=== PATIENT | male | born 1945 | race African-American/Black ===

== ENCOUNTER → 2016-10-30 | Outpatient (CLI) | payer OTHER ==
[~2016-10-30] VITALS: Ht 172.7 cm; Wt 93.4 kg
[~2016-10-30] MED LIST: ALLOPURINOL 30300 M2 PO; ASPIR 8181 MG PO; CARDURA4 MG PO; FENOFIBRATE160 MG PO; FIBER0.52 GM PO; FLAGYL500 MG PO; K-DUR 20 MEQ T20 MEQ PO; LIPITOR 20 MG T20 M1 PO; LISINOPRIL10 MG PO; LISINOPRIL20 MG PO; NEURONTIN600 MG PO; NIFEDIPINE ER90 M1 PO; OXYCODONE-ACET1 EACH PO; PANTOPRAZOLE SO40 M1 PO; PRAVACHOL40 MG PO; VITAMIN B-12500 MCG PO
--- NOTE | ~2016-10-30 | P ---
[facility] [place] [address] PROCEDURE REPORT Name: RITA VENCES Room #: REG [facility].#: [id number] Admission: 10/30/16 Attend Phys: Heron Michel MD Discharge: Date of : 47 Report #: [id number] THIS REPORT FOR: //name// CC: Heron Michel BRIEF HISTORY: The patient is a 71-year-old male who was admitted recently to [facility] and had an upper endoscopy which revealed esophageal ulcers and a shelf-like abnormality in the distal esophagus with several small nodules. Biopsies revealed ulceration and were all benign, without evidence of Mackenzie's esophagus. He has been treated with a proton pump inhibitor and presents today for repeat evaluation of the esophagus, in particular to rule out malignancy and Mackenzie's esophagus due to the above-mentioned abnormalities. PREOPERATIVE DIAGNOSIS: Previous severe esophagitis. POSTOPERATIVE DIAGNOSES: 1. Small, moderate hiatus hernia. 2. Mild diffuse erythematous gastritis. 3. Questionable short segment Mackenzie's esophagus. 4. Healed esophagitis. MEDICATIONS: Deep sedation with propofol per anesthesia. SPECIMENS: 1. Biopsies of esophagus at 41 cm along the squamocolumnar junction to rule out Mackenzie. 2. Random biopsies of distal esophagus to rule out Mackenzie. ESTIMATED BLOOD LOSS: 3 mL. PROCEDURE: EGD with biopsy. FINDINGS: Prior to propofol sedation, procedure of upper endoscopy discussed with the patient as well as potential risks and its complications. He indicates he understands and desires to proceed. DESCRIPTION OF PROCEDURE: With the patient in the left lateral decubitus position, the [employer] video endoscope was inserted in the cervical esophagus under direct vision without difficulty. Examination of this organ through its entire length revealed normal esophageal mucosa down to the squamocolumnar junction. The squamocolumnar junction was intact. There were no ulcers or erosions. There was also a wffto-zp-lnfrgutj-sized sliding-type hiatus hernia and there was a question of a possibly short segment Mackenzie mucosa which was difficult to determine with the hiatus hernia. Multiple biopsies were obtained along the squamocolumnar junction. In addition, about 41 cm, the esophageal mucosa was [facility] [address] [place] [address] PROCEDURE REPORT Name: RITA VENCES [facility].#: [id number] Admission: 10/30/16 Attend Phys: Heron Michel MD Discharge: Date of : 47 Report #: [id number] completely normal. There were no shelf-like lesions. There were no ulcers. Dr. Chirinos described several nodules and no nodules were seen. The mucosa was completely flat. However, multiple random biopsies were obtained. The scope was advanced through the hernia into the stomach, which was examined on end views as well as retroflexed views. There was a pattern of gastritis which improves. She noted previous biopsies for H. pylori were negative. Upon retroflexion, the hernia was noted. No mass lesions were seen. The pylorus, duodenal bulb and postbulbar sweep were all inspected and noted to be within normal limits. At that point, the scope was slowly withdrawn and careful circumferential views confirmed the above findings. The patient tolerated the procedure well. CONDITION OF THE PATIENT UPON DISCHARGE: Following the procedure, the patient drowsy and arousable and he will be discharged to home when fully ambulatory. INSTRUCTIONS TO THE PATIENT AND FAMILY AT THE TIME OF DISCHARGE: Findings as noted above. At this point, more than likely, previously, he had just severe esophagitis which is now healed with a proton pump inhibitor. I do not see any abnormalities to suggest malignancy. He may have a short segment of Mackenzie, which is difficult to determine due to his hiatus hernia. We will follow up on biopsies and make further recommendations. However, at this point in time, he should continue his proton pump inhibitor. If he does well over the next 3 months, he may attempt to reduce to less than daily. <ELECTRONICALLY SIGNED> By: Heron Michel MD 10/31/16 0820 0943 1228 Heron Michel MD /nt
--- NOTE | ~2016-10-30 | EKG ---
[place] [address] [facility] [place] [address] ELECTROCARDIOGRAM REPORT Name: RITA VENCES [facility] [id number] Admission: 10/30/16 Attend Phys: Heron Michel MD Discharge: Date of : 47 Report #: [id number] THIS REPORT FOR: //name// [facility] Test Date: 2016-10-30 Test Time: 07:49:04 Pat Name: RITA EVNCES Department: Room: Gender: M Daub Color Mixer: MATHEW : 1945 Requested By: Gian Lockhart Order Number: [id number] MD: Aubrey Barroso Measurements Intervals [place] Rate: 61 P: 54 UT: 164 QRS: 71 QRSD: 98 T: 37 QT: 424 QTc: 427 Interpretive Statements Sinus rhythm Poor R wave progression Small inferior Q waves Compared to ECG 07/14/2016 09:51:47 inferior Q waves are less prominent Electronically Signed On 10-31-2016 8:06:33 CDT by Aubrey Barroso [email or web address] <ELECTRONICALLY SIGNED> By: Aubrey Barroso MD, [facility] 10/31/16 0806 0749 0749 Aubrey Barroso MD, FACC /EPI
--- NOTE | ~2016-10-30 | S ---
[facility] [place] [address] SURGICAL PATH RPT PROCEDURE Name: RITA VENCES Room #: REG [facility]..#: [id number] Admission: 10/30/16 Date of : 47 Discharge: Report #: [id number] Path Case #: [id number] PATHOLOGY REPORT COLLECTION DATE: 10/30/2016 RECEIVED DATE: 10/31/2016 SUBMITTING PHYS: Dr. Heron Michel OTHER PHYS: Dr. Heron Hi SPECIMEN(S) RECEIVED: A.Bx of GEJ at 41 cm B.Random bx of distal esophagus * * * * * * * * * * * * FINAL DIAGNOSIS: A. "Bx of GEJ at 41 cm," biopsy: - Esophageal squamous mucosa and gastric cardiac type mucosa with reactive changes and acute and chronic inflammation; no intestinal metaplasia or dysplasia seen. B. "Random bx of distal esophagus," biopsy: - Esophageal squamous mucosa with mild reactive changes, submucosal edema, and mild acute and chronic inflammation; no glandular epithelium or dysplasia seen. COMMENT: Clinical and endoscopic correlation is recommended. (CLW:; d/t: 11/03/16) PATHOLOGIST: Brittney Carrizales M.D. REPORT ELECTRONICALLY SIGNED BY: Brittney Carrizales M.D. DATE/TIME: 11/03/2016 20:42 * * * * * * * * * * * * GROSS PATHOLOGY: A. Received in formalin labeled "Rita Vences, BX of GEJ at 41 cm," are 5 segments of christie soft tissue measuring 2.3 x 0.2 x 0.2 cm in aggregate dimensions and ranging from 0.2 to 0.7 cm in maximum dimension. The specimen is submitted entirely in cassette A1. B. Received in formalin labeled "Rita Vences, random BX of distal esophagus," are 6 segments of white soft tissue measuring 1.9 x 0.2 x 0.1 cm in aggregate dimensions and ranging from 0.1 to 0.6 cm in maximum dimension. The specimen is submitted entirely in cassette B1. (SHAHANA; 10/31/2016) [address] [address] SURGICAL PATH RPT PROCEDURE Name: RITA VENCES Room #: REG [facility] M.R.#: [id number] Admission: 10/30/16 Date of : 47 Discharge: Report #: [id number] Path Case #: [id number] CLINICAL HISTORY: Esophagitis INITIAL CPT CODE(S): A; 85503 B; 75357 Professional services performed by [facility] [address], [place] [address] Technical services performed by [facility] at [address] [place] [address], [facility] [address], [place] [address]. [facility] [address] [place] [address] PHONE: [phone] DIRECTOR: Feroz Johnson M.D. * * * END OF REPORT * * *
== END | disposition home or self-care (01) ==
LOC: GI 10-10 13:35
DX: K29.70 Gastritis, unspecified, without bleeding (principal); K44.9 Diaphragmatic hernia without obstruction or gangrene; I10 Essential (primary) hypertension; E78.00 Pure hypercholesterolemia, unspecified; Z87.442 Personal history of urinary calculi; K21.9 Gastro-esophageal reflux disease without esophagitis; Z96.653 Presence of artificial knee joint, bilateral; M19.90 Unspecified osteoarthritis, unspecified site; M10.9 Gout, unspecified; Z98.890 Other specified postprocedural states; Z88.0 Allergy status to penicillin; Z79.899 Other long term (current) drug therapy

== ENCOUNTER → 2018-07-01 | Outpatient (CLI) | payer OTHER ==
[~2018-07-01] VITALS: Ht 172.7 cm; Wt 86.2 kg
[~2018-07-01] MED LIST changes: +COREG25 MG PO
--- NOTE | ~2018-07-01 | P ---
[facility] [place] [address] PROCEDURE REPORT Name: RITA VENCES Room #: REG [facility].#: [id number] Admission: 07/01/18 Attend Phys: Heron Michel MD Discharge: Date of : 47 Report #: [id number] THIS REPORT FOR: //name// CC: Heron Michel DATE OF SERVICE: 07/01/2018 BRIEF HISTORY: The patient is a 72-year-old male with a history of colon polyps, for high risk screening colonoscopy. PREOPERATIVE DIAGNOSIS: High risk screening colonoscopy. POSTOPERATIVE DIAGNOSES: 1. Multiple colonic polyps. 2. Moderate diverticulosis coli. 3. Internal hemorrhoids. MEDICATIONS: Deep sedation with propofol per Anesthesia. SPECIMENS: 1. Diminutive polyp, proximal transverse colon. 2. Diminutive polyp, hepatic flexure. 3. Sessile polyp at 70 cm. 4. Diminutive polyps x 2 at 55 cm. ESTIMATED BLOOD LOSS: 3 mL. PROCEDURE: Colonoscopy to cecum and terminal ileum with snare polypectomy and biopsy. FINDINGS: Prior to propofol sedation, procedure of colonoscopy was discussed with the patient as well as potential risks and its complications. He indicates he understands and desires to proceed. DESCRIPTION OF PROCEDURE: With the patient in left lateral decubitus position, digital examination was completed, which revealed no abnormalities. Subsequently, the Olympus video colonoscope was introduced in the rectum, advanced under direct vision to the cecum. Done with minimal difficulty. The cecum was identified by the ileocecal valve and the appendiceal orifice. I was able to visualize the distal segment of the terminal ileum, which was inspected and noted to be unremarkable. At that point, the scope was slowly withdrawn and careful circumferential views were obtained. As we withdrew the scope, a diminutive polyp was seen at the hepatic flexure, removed with cold biopsy forceps. Another one was seen in the proximal transverse colon, also removed [facility] [address] [place] [address] PROCEDURE REPORT Name: RITA VENCES Room #: REG [facility].#: [id number] Admission: 07/01/18 Attend Phys: Heron Michel MD Discharge: Date of : 46 Report #: [id number] with cold biopsy forceps. At 70 cm, a 4-5 mm sessile polyp was seen and removed by cold snare polypectomy. At 55 cm, 2 diminutive polyps were seen and removed with biopsy forceps. In addition, he was noted to have diverticular disease throughout the colon. He had moderate sized diverticulum starting about the hepatic flexure and all the way into the distal sigmoid colon. There was moderate diverticulosis coli, but there was no endoscopic evidence of diverticulitis. The scope was withdrawn in the rectum. No abnormalities were seen. Upon retroflexion, internal hemorrhoids were seen. Scope was withdrawn. The patient tolerated the procedure well. CONDITION OF THE PATIENT UPON DISCHARGE: Following the procedure, the patient drowsy, aroused, conversant and will be discharged home when fully ambulatory. INSTRUCTIONS TO THE PATIENT AND FAMILY AT THE TIME OF DISCHARGE: A total of 5 polyps were identified and removed today. We will follow up on the pathology and make further recommendations. If 3 or more polyps are adenomas, he is to return in 3 years; if only 1-2 adenomas, then 5 years; if none are adenomas, then 10 years would be indicated. Suggest high fiber diet for his diverticular disease. Last colonoscopy was probably more than 10 years ago, the patient does not recall. Withdrawal time from the cecum was 16 minutes and 12 seconds. By: 1040 1453 Heron Michel MD /nt
--- NOTE | 2018-07-05 08:08 | PATH ---
[facility] [place] [address] [place] [address] PATHOLOGY RPT PROCEDURE Name: RITA VENCES Room #: REG [facility] M.R.#: [id number] Admission: 07/01/18 Date of : 47 Discharge: Report #: [id number] Path Case #: [id number] [facility] Accession Number: [id number] . 01 Material submitted: . PART A: BX OF POLYP AT PROX TRANSVERSE COLON PART B: BX OF POLYP AT HEPATIC FLEXURE PART C: POLYP AT 70 CM PART D: BX OF POLYP AT 55 CM X2 . 01 Clinical history: . Pre-OP DX: Hx colon polyps Post-OP DX: Colon polyps, diverticulosis, hemorrhoids . 02 Diagnosis: A. Polyp, proximal transverse colon, endoscopic biopsy: - Minute tubular adenoma arising in a background of inflamed hyperplastic polyp. - Negative for high grade dysplasia. . B. Polyp, at hepatic flexure, endoscopic biopsy: - Minute tubular adenoma. - Negative for high grade dysplasia. . C. Polyp, at 70 cm, endoscopic biopsy: - Tubular adenoma. - Negative for high grade dysplasia. . D. Polyp x 2, at 55 cm, endoscopic biopsy: - Two fragments (of multiple sampled) showing tubular adenoma. - Negative for high grade dysplasia. (IUV/db; 07/02/2018) LBQ/07/02/2018 . 02 Electronically signed: . Nasreen Haro MD, Pathologist NPI- [id number] . 01 Gross description: . A. Received in formalin labeled "Rita Vences, BX of polyp proximal transverse colon," is a single segment of christie soft tissue measuring 0.7 cm in maximum dimension. The specimen is entirely submitted in cassette A1. . B. Received in formalin labeled "Rita Vences, BX polyp at hepatic flexure," are 2 segments of christie soft tissue measuring 0.7 x 0.2 x 0.2 cm in aggregate dimensions and ranging from 0.3 to 0.4 cm in maximum dimension. The specimen is submitted entirely in cassette B1. [address] [address] PATHOLOGY RPT PROCEDURE Name: RITA VENCES ELVIA [facility] [id number] Admission: 07/01/18 Date of : 47 Discharge: Report #: [id number] Path Case #: [id number] . C. Received in formalin labeled "Rita Vences, polyp at 70 cm," are 4 segments of christie soft tissue measuring 1.9 x 1.3 x 0.3 cm in aggregate dimensions and ranging from 0.3 to 0.9 cm in maximum dimension. The specimen is submitted entirely in cassette C1. . D. Received in formalin labeled "Rita Vences, BX polyp at 55 cm," are 5 segments of christie soft tissue measuring 1.2 x 0.9 x 0.4 cm in aggregate dimensions and ranging from 0.1 to 0.5 cm in maximum dimension. The specimen is submitted entirely in cassette D1. (TSD; 07/01/2018) TOB/TOB . 02 Pathologist provided ICD-10: D12.3, D12.6, K63.5 . 02 CPT . 789994, 631943, 864896, 089851 Specimen Comment: A courtesy copy of this report has been sent to Specimen Comment: [phone], . Specimen Comment: Report sent to / DR DC Performed at: [address], [place] [id number] MD Terry Dias MD Phone: [phone] Performed at: [address] [id number] MD Nasreen Haro MD Phone: [phone]
== END | disposition home or self-care (01) ==
LOC: GI 08:03
DX: Z12.11 Encounter for screening for malignant neoplasm of colon (principal); Z86.010 Personal history of colon polyps; D12.3 Benign neoplasm of transverse colon; D12.4 Benign neoplasm of descending colon; D12.5 Benign neoplasm of sigmoid colon; K57.30 Diverticulosis of large intestine without perforation or abscess without bleeding; K64.8 Other hemorrhoids; I10 Essential (primary) hypertension; E78.5 Hyperlipidemia, unspecified; K21.9 Gastro-esophageal reflux disease without esophagitis; M10.9 Gout, unspecified; M19.90 Unspecified osteoarthritis, unspecified site; Z91.041 Radiographic dye allergy status; Z88.0 Allergy status to penicillin; Z79.899 Other long term (current) drug therapy; Z87.19 Personal history of other diseases of the digestive system; Z98.890 Other specified postprocedural states; Z87.442 Personal history of urinary calculi; Z96.653 Presence of artificial knee joint, bilateral
CPT/HCPCS: 62110; 62900

== ENCOUNTER → 2018-12-16 | Outpatient (CLI) | payer OTHER ==
[2018-12-16 08:49] LABS: CREATININE 1.8 mg/dL (0.7-1.3)
== END ==
LOC: NUC 08:02
PROVIDERS: Specialist
DX: C61 Malignant neoplasm of prostate (principal); M17.0 Bilateral primary osteoarthritis of knee; Z96.653 Presence of artificial knee joint, bilateral

== ENCOUNTER → 2018-12-20 | Outpatient (CLI) | payer OTHER | LOC: CAT 07:44 | DX: C61 Malignant neoplasm of prostate (principal); N28.89 Other specified disorders of kidney and ureter; I70.0 Atherosclerosis of aorta; N40.0 Benign prostatic hyperplasia without lower urinary tract symptoms; M16.0 Bilateral primary osteoarthritis of hip; M47.816 Spondylosis without myelopathy or radiculopathy, lumbar region; M12.88 Other specific arthropathies, not elsewhere classified, other specified site ==

== ENCOUNTER → 2019-02-18 | Outpatient (CLI) | payer OTHER | LOC: NUC 08:31 | DX: Z08 Encounter for follow-up examination after completed treatment for malignant neoplasm (principal); Z85.46 Personal history of malignant neoplasm of prostate ==

== ENCOUNTER → 2019-02-22 | Outpatient (CLI) | payer OTHER | LOC: CAT | DX: N28.1 Cyst of kidney, acquired (principal); N28.9 Disorder of kidney and ureter, unspecified; R93.422 Abnormal radiologic findings on diagnostic imaging of left kidney; C61 Malignant neoplasm of prostate ==

== ENCOUNTER 2019-04-06 18:24 | Emergency (ER) | payer OTHER ==
[~2019-04-06] VITALS: Ht 172.7 cm; Wt 95.3 kg
== END 2019-04-06 19:07 | disposition home or self-care (01) ==
LOC: ER 18:24
DX: K40.90 Unilateral inguinal hernia, without obstruction or gangrene, not specified as recurrent (principal); I10 Essential (primary) hypertension; M19.90 Unspecified osteoarthritis, unspecified site; E78.5 Hyperlipidemia, unspecified; Z85.46 Personal history of malignant neoplasm of prostate; Z87.442 Personal history of urinary calculi; Z88.0 Allergy status to penicillin; Z91.041 Radiographic dye allergy status

== ENCOUNTER 2019-04-10 17:53 | Emergency (ER) | payer OTHER ==
[~2019-04-10] VITALS: Ht 172.7 cm; Wt 82.6 kg
[2019-04-10 19:13] LABS: URINE BILIRUBIN NEGATIVE (Negative); URINE BLOOD NEGATIVE (Negative); URINE CLARITY CLEAR; URINE COLOR YELLOW; URINE GLUCOSE-RANDOM* NEGATIVE (Negative); URINE KETONES NEGATIVE (Negative); URINE LEUKOCYTES-REFLEX NEGATIVE (Negative); URINE NITRITE-REFLEX NEGATIVE (Negative); URINE PROTEIN (DIPSTICK) 1+ (Negative); URINE SPECIFIC GRAVITY >= 1.030 (1.005-1.035); URINE UROBILINOGEN 0.2 E.U./dl (0.2-1.0)
[2019-04-10 19:20] LABS: CRYSTALS None Seen /LPF (None Seen); SQUAMOUS >10 Many /LPF (0-3)
[2019-04-10 19:22] LABS: HYALINE CASTS 0-3 Few /LPF (None Seen); URINE WBC-REFLEX None Seen /HPF (0-5)
[2019-04-10 19:23] LABS: BACTERIA-REFLEX 1-9 Few /HPF (None Seen); URINE RBC None Seen /HPF (0-2)
[2019-04-10 19:57] VITALS: BP 152/79
== END 2019-04-10 20:00 | disposition home or self-care (01) ==
LOC: ER 17:53
PROVIDERS: Emergency Medicine
DX: K40.90 Unilateral inguinal hernia, without obstruction or gangrene, not specified as recurrent (principal); I10 Essential (primary) hypertension; E78.5 Hyperlipidemia, unspecified; K21.9 Gastro-esophageal reflux disease without esophagitis; M10.9 Gout, unspecified; Z96.653 Presence of artificial knee joint, bilateral; Z85.46 Personal history of malignant neoplasm of prostate; Z91.041 Radiographic dye allergy status; Z88.0 Allergy status to penicillin

== ENCOUNTER → 2019-08-26 | Outpatient (CLI) | payer OTHER ==
[2019-08-26 08:37] LABS: CREATININE 1.7 mg/dL (0.7-1.3)
== END ==
LOC: CAT 07:07
PROVIDERS: ATTEND Specialist
DX: R93.422 Abnormal radiologic findings on diagnostic imaging of left kidney (principal); K76.89 Other specified diseases of liver; R91.1 Solitary pulmonary nodule

== ENCOUNTER → 2019-12-28 | Outpatient (CLI) | payer OTHER ==
[~2019-12-28] MED LIST changes: +VITAMIN D350 MC3 PO
== END ==
LOC: LAB 13:38
PROVIDERS: ATTEND Student in an Organized Health Care Education/Training Program
DX: Z01.812 Encounter for preprocedural laboratory examination (principal); Z11.59 Encounter for screening for other viral diseases

== ENCOUNTER → 2020-01-02 | Outpatient (CLI) | payer OTHER ==
[~2020-01-02] VITALS: Ht 172.7 cm; Wt 79.4 kg
--- NOTE | 2020-01-02 10:03 | P ---
[facility] [place] [address] PROCEDURE REPORT Name: RITA VENCES Room #: REG [facility]#: [id number] Admission: 01/02/20 Attend Phys: Yasmine Michel MD Discharge: Date of : 47 Report #: [id number] THIS REPORT FOR: cc: Yasmine Hi MD, John M. MD Thesing,Yasmine Vasquez MD ~ CC: YASMINE Michel DATE OF SERVICE: 01/02/2020 BRIEF HISTORY: The patient is a 74-year-old male who reports he had a marked change in bowel habits in recent months. He previously had regular stools and now having pencil like stools with difficulty with passage of stool. He has some rectal discomfort, but no rectal bleeding. He did have prostate cancer and radiation therapy about 8-9 months ago. PREOPERATIVE DIAGNOSIS: Change in bowel habits. POSTOPERATIVE DIAGNOSES: 1. Pandiverticulosis coli. 2. Small internal hemorrhoids. MEDICATIONS: Deep sedation with propofol per Anesthesia. SPECIMEN: None. ESTIMATED BLOOD LOSS: None. PROCEDURE: Colonoscopy to cecum and terminal ileum. FINDINGS: Prior to propofol sedation, procedure of colonoscopy discussed with the patient as well as potential risks and its complications. He indicates he understands and desires to proceed. DESCRIPTION OF PROCEDURE: With the patient in left lateral decubitus position, digital examination was completed, which revealed no abnormalities. Subsequently, the Olympus video colonoscope was introduced into the rectum, advanced under direct vision to the cecum. Cecum was identified by the ileocecal valve and the appendiceal orifice. I was able to advance the scope across the ileocecal valve and visualize the distal segment of terminal ileum. There was a normal villous pattern. At that point, the scope was slowly withdrawn and careful circumferential views were obtained. Upon slow withdrawal of the scope, the mucosa was inspected. There were some minor limitations of the prep in particular the cecum and ascending colon. With the [facility] and [facility] [address] [place] [address] PROCEDURE REPORT Name: RITA VENCES Room #: REG [facility].#: [id number] Admission: 01/02/20 Attend Phys: Yasmine Michel MD Discharge: Date of : 47 Report #: [id number] suctioning, we were able to obtain reasonably good views of the colonic mucosa. The mucosa was within normal limits, normal vascular pattern, and normal light reflex. Upon withdrawal of the scope, no neoplastic lesions were seen. No bleeding lesions were seen. No obstructing lesions were seen and no strictures were seen. However, he does have diverticulosis coli involving the proximal colon as well as the left colon. He has kdvg-pj-uaznuxzg pandiverticulosis coli without endoscopic evidence of diverticulitis. The scope was withdrawn in the rectum and no abnormalities were seen. Upon retroflexion, small hemorrhoids were seen. He has a history of previous radiation therapy, but I did not find evidence of definite radiation proctitis, bleeding or vascular malformations. Scope was withdrawn. The patient tolerated the procedure well. CONDITION OF THE PATIENT UPON DISCHARGE: Following procedure, the patient drowsy, arousable, conversant and will be discharged to home when fully ambulatory. INSTRUCTIONS TO THE PATIENT AND FAMILY AT THE TIME OF DISCHARGE: I do not see any significant lesions to explain his change of bowel habits. It may in part be related to previous radiation, but I do not see endoscopic evidence of radiation proctitis. At this point in time, I suggest a high fiber diet. He may use a fiber product such as Metamucil or Citrucel, which may help with his change in bowel habits. If needed, MiraLax could be used as well or in addition to fiber product. He does have a history of multiple colon polyps. No polyps were seen today. I suggest return in 5 years for high risk screening colonoscopy. He will return to care of Dr. Yasmine Hi. If he continues to have GI symptoms, he should return to the office for followup. Withdrawal time from the cecum was 8 minutes 34 seconds. <ELECTRONICALLY SIGNED> By: Yasmine Michel MD 01/02/20 1003 0827 0907 Yasmine Michel MD /nt
--- NOTE | 2020-01-02 10:03 | P ---
[facility] [place] [address] PROCEDURE REPORT Name: RITA VENCES [facility] [id number] Admission: 01/02/20 Attend Phys: Yasmine Michel MD Discharge: Date of : 47 Report #: [id number] THIS REPORT FOR: cc: Yasmine Hi MD, John M. MD Thesing,Yasmine Vasquez MD ~ CC: YASMINE Michel DATE OF SERVICE: 01/02/2020 BRIEF HISTORY: The patient is a 74-year-old male known to me with a questionable history of Mackenzie's esophagus. In the past, he had evidence of severe esophagitis and concern for Mackenzie's esophagus; however, it was never confirmed. In addition, he has recurrent dysphagia with solids hanging up at the level of suprasternal notch. He denies typical reflux symptoms and is not on acid reflux therapy. PREOPERATIVE DIAGNOSIS: Dysphagia and questionable history of Mackenzie's esophagus. POSTOPERATIVE DIAGNOSES: 1. Mild gastritis with few small antral erosions. 2. Small, less than 2 cm sliding type hiatus hernia. 3. Very questionable short segment of Mackenzie esophagus, gastroesophageal junction. MEDICATIONS: Deep sedation with propofol per Anesthesia. SPECIMENS: 1. Biopsies of gastritis, rule out Helicobacter pylori. 2. Biopsy of GE junction, rule out Mackenzie. ESTIMATED BLOOD LOSS: 3 mL. PROCEDURE: EGD with biopsy, Dye dilation. FINDINGS: Prior to propofol sedation, procedure of upper endoscopy was reviewed with the patient as well as potential risks and its complications. He indicates he understands and desires to proceed. DESCRIPTION OF PROCEDURE: With the patient in left lateral decubitus position, the Olympus video endoscope was inserted in the cervical esophagus under direct vision without difficulty. Examination of this organ through its entire length revealed normal esophageal mucosa down the squamocolumnar junction. Both [facility] [address] [place] [address] PROCEDURE REPORT Name: RITA VENCES [facility] [id number] Admission: 01/02/20 Attend Phys: Yasmine Michel MD Discharge: Date of : 47 Report #: [id number] light and narrow banded imaging were used. With narrow banding imaging, there was some vascular irregularity, raising the possibility of a short segment of Mackenzie's involving about one-third of the circumference of the GE junction of less than 2 cm. The Z line was about 36-37 cm. The mucosa was flat. No nodules, ulcers, or erosions were seen. There was no evidence of esophagitis. No strictures or masses were seen. Biopsies were obtained. Intermittently, a less than 2 cm sliding type hiatus hernia was seen. Scope was advanced in the stomach, which was examined on end view as well as retroflexed views. Examination of the proximal stomach on end view as well as retroflexed views revealed a normal appearing mucosa. No ulcers, erosions or mass lesions were seen. Examination of distal stomach did reveal evidence of a couple very small erosions. No ulcers were seen. The pylorus was unremarkable. The duodenal bulb and postbulbar duodenal sweep were unremarkable. At that point, the scope was slowly withdrawn and careful circumferential views were obtained. Subsequently, the patient was dilated with passage of a 54-Chinese Dye dilator. There was no resistance. CONDITION OF THE PATIENT UPON DISCHARGE: Following procedure, the patient drowsy, arousable and conversant and will be discharged to home when fully ambulatory. INSTRUCTIONS TO THE PATIENT AND FAMILY AT THE TIME OF DISCHARGE: A questionable segment pf Mackenzie. We will follow up on biopsies. If Mackenzie is present and there is no dysplasia, suggest followup EGD in 3 years. However, if there is Mackenzie and there is dysplasia, he may need further treatment or intervention. He was dilated with 54-Chinese Dye dilator. He has been dilated in the past. An obvious stricture ring has never been noted. If he continues to have problems with dysphagia, he is to return for followup in the office. He may need further evaluation such as esophageal manometry. We will proceed with colonoscopy at this time. <ELECTRONICALLY SIGNED> By: Yasmine Michel MD 01/02/20 1003 0803 0851 Yasmine Michel MD /nt
--- NOTE | 2020-01-03 15:07 | PATH ---
[facility] [place] [address] PATHOLOGY RPT PROCEDURE Name: RITA DEL RIO Room #: REG TERE Borja#: [id number] Admission: 01/02/20 Date of : 47 Discharge: Report #: [id number] Path Case #: [id number] LCA Accession Number: [id number] . 01 Material submitted: . PART A: stomach - BX OF GASTRITIS PART B: esophagus - BX OF DISTAL ESOPHAGUS AT GE JUNCTION. Modifiers: distal . 01 Clinical history: . DYSPHAGIA, QUESTIONABLE HX OF BARRETTS, CHANGE IN BOWEL HABITS, R/O H. PYLORI, R/O BARRETTS . . 02 Diagnosis: A. Gastric mucosa, gastritis rule out H. pylori, endoscopic biopsy: - Mild reactive gastropathy. - Negative for intestinal metaplasia or atrophy. - Negative for Helicobacter pylori (properly controlled immunohistochemical stain performed). . B. Gastroesophageal mucosa, distal esophagus at GE junction questionable history of Mackenzie's rule out Mackenzie's, endoscopic biopsy: - Focal specialized columnar epithelium (gastric fundic-type mucosa) with intestinal metaplasia, consistent with focal Mackenzie's metaplasia. - Negative for dysplasia. - Squamous mucosa with mild esophagitis. LBQ 01/03/2020 1335 Local . 02 Comment: Part B. The above diagnosis of Mackenzie's esophagus is made due to presence of intestinal metaplasia and with the assumption that the biopsies were obtained from the columnar mucosa in the distal esophagus located at least 1 cm proximal to the top of the gastric folds as per the 2016 ACG guidelines. (IUV/db; 01/03/2020) . 02 Electronically signed: . Nasreen Haro MD, Pathologist NPI- [id number] . 01 Gross description: . A. The specimen is received in formalin, labeled "Rita Del Rio BX of gastritis" and consists of multiple fragments of christie tissue measuring 1.0 x 0.9 x 0.3 cm in aggregate which are entirely submitted in A1. . B. The specimen is received in formalin, labeled "Rita Del Rio BX of [address] [address] PATHOLOGY RPT PROCEDURE Name: RITA DEL RIO Room #: REG TERE Borja#: [id number] Admission: 01/02/20 Date of : 47 Discharge: Report #: [id number] Path Case #: [id number] distal esophagus GE junction questionable" and consists of 3 fragments of pink-christie tissue measuring between 0.2 x 0.2 cm and 0.4 x 0.3 cm which are entirely submitted in B1. (SDY; 01/02/2020) SYU/SYU 01/02/2020 1623 Local . 02 Pathologist provided ICD-10: K31.9, K20.9 . 02 CPT . 627648, 642824, L54178 Specimen Comment: A courtesy copy of this report has been sent to [phone], [phone] Specimen Comment: [phone] Specimen Comment: Report sent to / DR DC Performed at: [address], [place] [id number] MD Terry Dias MD Phone: [phone] Performed at: [address] [id number] MD Nasreen Haro MD Phone: [phone]
== END | disposition home or self-care (01) ==
LOC: GI 06:30
PROVIDERS: ATTEND Specialist
DX: R19.4 Change in bowel habit (principal); K57.30 Diverticulosis of large intestine without perforation or abscess without bleeding; K64.8 Other hemorrhoids; K64.4 Residual hemorrhoidal skin tags; K31.9 Disease of stomach and duodenum, unspecified; K29.70 Gastritis, unspecified, without bleeding; K20.9 Esophagitis, unspecified; K22.70 Barrett's esophagus without dysplasia; R13.10 Dysphagia, unspecified; K44.9 Diaphragmatic hernia without obstruction or gangrene; I10 Essential (primary) hypertension; E78.5 Hyperlipidemia, unspecified; K21.9 Gastro-esophageal reflux disease without esophagitis; M19.90 Unspecified osteoarthritis, unspecified site; Z98.890 Other specified postprocedural states; Z79.899 Other long term (current) drug therapy; Z85.46 Personal history of malignant neoplasm of prostate; Z87.442 Personal history of urinary calculi; Z96.653 Presence of artificial knee joint, bilateral; Z88.0 Allergy status to penicillin; Z91.041 Radiographic dye allergy status
CPT/HCPCS: 62110; 62900

== ENCOUNTER → 2020-03-21 | Outpatient (CLI) | payer OTHER ==
[2020-03-21 10:15] LABS: CREATININE 1.9 mg/dL (0.7-1.3)
== END ==
LOC: CAT 09:21
PROVIDERS: ATTEND Specialist
DX: C61 Malignant neoplasm of prostate (principal); K40.20 Bilateral inguinal hernia, without obstruction or gangrene, not specified as recurrent; R93.422 Abnormal radiologic findings on diagnostic imaging of left kidney; N28.1 Cyst of kidney, acquired; M43.16 Spondylolisthesis, lumbar region

== ENCOUNTER → 2020-03-29 | Outpatient (CLI) | payer OTHER | LOC: ULTRA 09:26 | PROVIDERS: ATTEND Specialist | DX: N28.1 Cyst of kidney, acquired (principal); K80.20 Calculus of gallbladder without cholecystitis without obstruction; R93.422 Abnormal radiologic findings on diagnostic imaging of left kidney; R16.0 Hepatomegaly, not elsewhere classified ==

== ENCOUNTER → 2020-08-27 | Outpatient (CLI) | payer OTHER | LOC: HYPER 12:12 | PROVIDERS: ATTEND Emergency Medicine | DX: N30.21 Other chronic cystitis with hematuria (principal); C61 Malignant neoplasm of prostate; N52.35 Erectile dysfunction following radiation therapy; R97.20 Elevated prostate specific antigen [PSA]; I10 Essential (primary) hypertension; E78.00 Pure hypercholesterolemia, unspecified; M19.90 Unspecified osteoarthritis, unspecified site; M10.9 Gout, unspecified ==

== ENCOUNTER → 2020-09-11 | Outpatient (CLI) | payer OTHER | LOC: HYPER 09-10 08:02 | PROVIDERS: ATTEND Emergency Medicine Emergency Medical Services | DX: L59.8 Other specified disorders of the skin and subcutaneous tissue related to radiation (principal); N30.41 Irradiation cystitis with hematuria; M87.88 Other osteonecrosis, other site; N52.35 Erectile dysfunction following radiation therapy; C61 Malignant neoplasm of prostate; R97.20 Elevated prostate specific antigen [PSA]; I10 Essential (primary) hypertension; M19.90 Unspecified osteoarthritis, unspecified site; M10.9 Gout, unspecified; E78.00 Pure hypercholesterolemia, unspecified; Z79.899 Other long term (current) drug therapy; Y84.2 Radiological procedure and radiotherapy as the cause of abnormal reaction of the patient, or of later complication, without mention of misadventure at the time of the procedure ==

== ENCOUNTER → 2020-09-12 | Outpatient (CLI) | payer OTHER | LOC: HYPER 08:00 | PROVIDERS: ATTEND Emergency Medicine | DX: L59.8 Other specified disorders of the skin and subcutaneous tissue related to radiation (principal); N30.41 Irradiation cystitis with hematuria; M87.88 Other osteonecrosis, other site; N52.35 Erectile dysfunction following radiation therapy; C61 Malignant neoplasm of prostate; R97.20 Elevated prostate specific antigen [PSA]; I10 Essential (primary) hypertension; M19.90 Unspecified osteoarthritis, unspecified site; M10.9 Gout, unspecified; E78.00 Pure hypercholesterolemia, unspecified; Z79.899 Other long term (current) drug therapy; Y84.2 Radiological procedure and radiotherapy as the cause of abnormal reaction of the patient, or of later complication, without mention of misadventure at the time of the procedure ==

== ENCOUNTER → 2020-09-13 | Outpatient (CLI) | payer OTHER | LOC: HYPER 08:00 | PROVIDERS: ATTEND Emergency Medicine | DX: L59.8 Other specified disorders of the skin and subcutaneous tissue related to radiation (principal); N30.41 Irradiation cystitis with hematuria; M87.88 Other osteonecrosis, other site; N52.35 Erectile dysfunction following radiation therapy; C61 Malignant neoplasm of prostate; R97.20 Elevated prostate specific antigen [PSA]; I10 Essential (primary) hypertension; M19.90 Unspecified osteoarthritis, unspecified site; M10.9 Gout, unspecified; E78.00 Pure hypercholesterolemia, unspecified; Z79.899 Other long term (current) drug therapy; Y84.2 Radiological procedure and radiotherapy as the cause of abnormal reaction of the patient, or of later complication, without mention of misadventure at the time of the procedure ==

== ENCOUNTER → 2020-09-14 | Outpatient (CLI) | payer OTHER | LOC: HYPER 08:00 | PROVIDERS: ATTEND Emergency Medicine Emergency Medical Services | DX: L59.8 Other specified disorders of the skin and subcutaneous tissue related to radiation (principal); N30.41 Irradiation cystitis with hematuria; M87.88 Other osteonecrosis, other site; N52.35 Erectile dysfunction following radiation therapy; C61 Malignant neoplasm of prostate; R97.20 Elevated prostate specific antigen [PSA]; I10 Essential (primary) hypertension; M19.90 Unspecified osteoarthritis, unspecified site; M10.9 Gout, unspecified; E78.00 Pure hypercholesterolemia, unspecified; Z79.899 Other long term (current) drug therapy; Y84.2 Radiological procedure and radiotherapy as the cause of abnormal reaction of the patient, or of later complication, without mention of misadventure at the time of the procedure ==

== ENCOUNTER → 2020-09-17 | Outpatient (CLI) | payer OTHER | LOC: HYPER 08:00 | PROVIDERS: ATTEND Emergency Medicine Emergency Medical Services | DX: L59.8 Other specified disorders of the skin and subcutaneous tissue related to radiation (principal); N30.41 Irradiation cystitis with hematuria; M87.88 Other osteonecrosis, other site; N52.35 Erectile dysfunction following radiation therapy; C61 Malignant neoplasm of prostate; R97.20 Elevated prostate specific antigen [PSA]; I10 Essential (primary) hypertension; M19.90 Unspecified osteoarthritis, unspecified site; M10.9 Gout, unspecified; E78.00 Pure hypercholesterolemia, unspecified; Y84.2 Radiological procedure and radiotherapy as the cause of abnormal reaction of the patient, or of later complication, without mention of misadventure at the time of the procedure ==

== ENCOUNTER → 2020-09-18 | Outpatient (CLI) | payer OTHER | LOC: HYPER 16:10 | PROVIDERS: ATTEND Specialist | DX: L59.8 Other specified disorders of the skin and subcutaneous tissue related to radiation (principal); N30.41 Irradiation cystitis with hematuria; M87.88 Other osteonecrosis, other site; N52.35 Erectile dysfunction following radiation therapy; C61 Malignant neoplasm of prostate; R97.20 Elevated prostate specific antigen [PSA]; I10 Essential (primary) hypertension; M19.90 Unspecified osteoarthritis, unspecified site; M10.9 Gout, unspecified; Z79.899 Other long term (current) drug therapy; Y84.2 Radiological procedure and radiotherapy as the cause of abnormal reaction of the patient, or of later complication, without mention of misadventure at the time of the procedure ==

== ENCOUNTER → 2020-09-20 | Outpatient (CLI) | payer OTHER | LOC: HYPER 07:33 | PROVIDERS: ATTEND Emergency Medicine | DX: L59.8 Other specified disorders of the skin and subcutaneous tissue related to radiation (principal); N30.41 Irradiation cystitis with hematuria; C61 Malignant neoplasm of prostate; M87.88 Other osteonecrosis, other site; N52.35 Erectile dysfunction following radiation therapy; R97.20 Elevated prostate specific antigen [PSA]; I10 Essential (primary) hypertension; M19.90 Unspecified osteoarthritis, unspecified site; M10.9 Gout, unspecified; E78.00 Pure hypercholesterolemia, unspecified; Z79.899 Other long term (current) drug therapy; Y84.2 Radiological procedure and radiotherapy as the cause of abnormal reaction of the patient, or of later complication, without mention of misadventure at the time of the procedure ==

== ENCOUNTER → 2020-09-21 | Outpatient (CLI) | payer OTHER | LOC: HYPER 10:32 | PROVIDERS: ATTEND Emergency Medicine Emergency Medical Services | DX: L59.8 Other specified disorders of the skin and subcutaneous tissue related to radiation (principal); N30.41 Irradiation cystitis with hematuria; C61 Malignant neoplasm of prostate; M87.88 Other osteonecrosis, other site; N52.35 Erectile dysfunction following radiation therapy; R97.20 Elevated prostate specific antigen [PSA]; I10 Essential (primary) hypertension; M19.90 Unspecified osteoarthritis, unspecified site; M10.9 Gout, unspecified; E78.00 Pure hypercholesterolemia, unspecified; Z79.899 Other long term (current) drug therapy; Y84.2 Radiological procedure and radiotherapy as the cause of abnormal reaction of the patient, or of later complication, without mention of misadventure at the time of the procedure ==

== ENCOUNTER → 2020-09-24 | Outpatient (CLI) | payer OTHER | LOC: HYPER 08:00 | PROVIDERS: ATTEND Emergency Medicine Emergency Medical Services | DX: L59.8 Other specified disorders of the skin and subcutaneous tissue related to radiation (principal); N30.41 Irradiation cystitis with hematuria; C61 Malignant neoplasm of prostate; M87.88 Other osteonecrosis, other site; N52.35 Erectile dysfunction following radiation therapy; R97.20 Elevated prostate specific antigen [PSA]; I10 Essential (primary) hypertension; M19.90 Unspecified osteoarthritis, unspecified site; M10.9 Gout, unspecified; E78.00 Pure hypercholesterolemia, unspecified; Y84.2 Radiological procedure and radiotherapy as the cause of abnormal reaction of the patient, or of later complication, without mention of misadventure at the time of the procedure ==

== ENCOUNTER → 2020-09-25 | Outpatient (CLI) | payer OTHER | LOC: HYPER 15:07 | PROVIDERS: ATTEND Specialist | DX: L59.8 Other specified disorders of the skin and subcutaneous tissue related to radiation (principal); N30.41 Irradiation cystitis with hematuria; C61 Malignant neoplasm of prostate; M87.88 Other osteonecrosis, other site; N52.35 Erectile dysfunction following radiation therapy; R97.20 Elevated prostate specific antigen [PSA]; I10 Essential (primary) hypertension; M19.90 Unspecified osteoarthritis, unspecified site; M10.9 Gout, unspecified; E78.00 Pure hypercholesterolemia, unspecified; Y84.2 Radiological procedure and radiotherapy as the cause of abnormal reaction of the patient, or of later complication, without mention of misadventure at the time of the procedure ==

== ENCOUNTER → 2020-09-26 | Outpatient (CLI) | payer OTHER | LOC: HYPER 09:53 | PROVIDERS: ATTEND Emergency Medicine | DX: L59.8 Other specified disorders of the skin and subcutaneous tissue related to radiation (principal); N30.41 Irradiation cystitis with hematuria; C61 Malignant neoplasm of prostate; M87.88 Other osteonecrosis, other site; N52.35 Erectile dysfunction following radiation therapy; R97.20 Elevated prostate specific antigen [PSA]; I10 Essential (primary) hypertension; M19.90 Unspecified osteoarthritis, unspecified site; M10.9 Gout, unspecified; E78.00 Pure hypercholesterolemia, unspecified; Y84.2 Radiological procedure and radiotherapy as the cause of abnormal reaction of the patient, or of later complication, without mention of misadventure at the time of the procedure ==

== ENCOUNTER → 2020-09-27 | Outpatient (CLI) | payer OTHER | LOC: HYPER 07:35 | PROVIDERS: ATTEND Emergency Medicine | DX: N30.41 Irradiation cystitis with hematuria (principal); L59.8 Other specified disorders of the skin and subcutaneous tissue related to radiation; C61 Malignant neoplasm of prostate; N52.35 Erectile dysfunction following radiation therapy; R97.20 Elevated prostate specific antigen [PSA]; I10 Essential (primary) hypertension; M19.90 Unspecified osteoarthritis, unspecified site; M10.9 Gout, unspecified; E78.00 Pure hypercholesterolemia, unspecified; Z79.899 Other long term (current) drug therapy; Y84.2 Radiological procedure and radiotherapy as the cause of abnormal reaction of the patient, or of later complication, without mention of misadventure at the time of the procedure ==

== ENCOUNTER → 2020-09-28 | Outpatient (CLI) | payer OTHER | LOC: HYPER 08:00 | PROVIDERS: ATTEND Emergency Medicine Emergency Medical Services | DX: L59.8 Other specified disorders of the skin and subcutaneous tissue related to radiation (principal); N30.41 Irradiation cystitis with hematuria; M87.88 Other osteonecrosis, other site; C61 Malignant neoplasm of prostate; N52.35 Erectile dysfunction following radiation therapy; R97.20 Elevated prostate specific antigen [PSA]; I10 Essential (primary) hypertension; M19.90 Unspecified osteoarthritis, unspecified site; M10.9 Gout, unspecified; E78.00 Pure hypercholesterolemia, unspecified; Y84.2 Radiological procedure and radiotherapy as the cause of abnormal reaction of the patient, or of later complication, without mention of misadventure at the time of the procedure ==

== ENCOUNTER → 2020-10-01 | Outpatient (CLI) | payer OTHER | LOC: HYPER 13:26 | PROVIDERS: ATTEND Emergency Medicine | DX: L59.8 Other specified disorders of the skin and subcutaneous tissue related to radiation (principal); N30.41 Irradiation cystitis with hematuria; C61 Malignant neoplasm of prostate; N52.35 Erectile dysfunction following radiation therapy; M87.88 Other osteonecrosis, other site; R97.20 Elevated prostate specific antigen [PSA]; I10 Essential (primary) hypertension; M19.90 Unspecified osteoarthritis, unspecified site; M10.9 Gout, unspecified; E78.00 Pure hypercholesterolemia, unspecified; Y84.2 Radiological procedure and radiotherapy as the cause of abnormal reaction of the patient, or of later complication, without mention of misadventure at the time of the procedure ==

== ENCOUNTER → 2020-10-02 | Outpatient (CLI) | payer OTHER | LOC: HYPER 07:54 | PROVIDERS: ATTEND Specialist | DX: N30.41 Irradiation cystitis with hematuria (principal); L59.8 Other specified disorders of the skin and subcutaneous tissue related to radiation; N52.35 Erectile dysfunction following radiation therapy; C61 Malignant neoplasm of prostate; R97.20 Elevated prostate specific antigen [PSA]; I10 Essential (primary) hypertension; M19.90 Unspecified osteoarthritis, unspecified site; M10.9 Gout, unspecified; E78.00 Pure hypercholesterolemia, unspecified; Z79.899 Other long term (current) drug therapy; Y84.2 Radiological procedure and radiotherapy as the cause of abnormal reaction of the patient, or of later complication, without mention of misadventure at the time of the procedure ==

== ENCOUNTER → 2020-10-03 | Outpatient (CLI) | payer OTHER | LOC: HYPER 07:40 | PROVIDERS: ATTEND Emergency Medicine | DX: L59.8 Other specified disorders of the skin and subcutaneous tissue related to radiation (principal); N30.41 Irradiation cystitis with hematuria; M87.88 Other osteonecrosis, other site; N52.35 Erectile dysfunction following radiation therapy; C61 Malignant neoplasm of prostate; R97.20 Elevated prostate specific antigen [PSA]; I10 Essential (primary) hypertension; M19.90 Unspecified osteoarthritis, unspecified site; M10.9 Gout, unspecified; E78.00 Pure hypercholesterolemia, unspecified; Y84.2 Radiological procedure and radiotherapy as the cause of abnormal reaction of the patient, or of later complication, without mention of misadventure at the time of the procedure ==

== ENCOUNTER → 2020-10-04 | Outpatient (CLI) | payer OTHER | LOC: HYPER 07:56 | PROVIDERS: ATTEND Emergency Medicine | DX: L59.8 Other specified disorders of the skin and subcutaneous tissue related to radiation (principal); N30.41 Irradiation cystitis with hematuria; M87.88 Other osteonecrosis, other site; N52.35 Erectile dysfunction following radiation therapy; C61 Malignant neoplasm of prostate; R97.20 Elevated prostate specific antigen [PSA]; I10 Essential (primary) hypertension; M19.90 Unspecified osteoarthritis, unspecified site; M10.9 Gout, unspecified; E78.00 Pure hypercholesterolemia, unspecified; Y84.2 Radiological procedure and radiotherapy as the cause of abnormal reaction of the patient, or of later complication, without mention of misadventure at the time of the procedure ==

== ENCOUNTER → 2020-10-05 | Outpatient (CLI) | payer OTHER | LOC: HYPER 07:35 | PROVIDERS: ATTEND Emergency Medicine | DX: N30.41 Irradiation cystitis with hematuria (principal); L59.8 Other specified disorders of the skin and subcutaneous tissue related to radiation; N52.35 Erectile dysfunction following radiation therapy; C61 Malignant neoplasm of prostate; R97.20 Elevated prostate specific antigen [PSA]; I10 Essential (primary) hypertension; M19.90 Unspecified osteoarthritis, unspecified site; M10.9 Gout, unspecified; E78.00 Pure hypercholesterolemia, unspecified; Z79.899 Other long term (current) drug therapy; Y84.2 Radiological procedure and radiotherapy as the cause of abnormal reaction of the patient, or of later complication, without mention of misadventure at the time of the procedure ==

== ENCOUNTER → 2020-10-08 | Outpatient (CLI) | payer OTHER | LOC: HYPER 07:49 | PROVIDERS: ATTEND Emergency Medicine Emergency Medical Services | DX: L59.8 Other specified disorders of the skin and subcutaneous tissue related to radiation (principal); M87.88 Other osteonecrosis, other site; N30.41 Irradiation cystitis with hematuria; C61 Malignant neoplasm of prostate; N52.35 Erectile dysfunction following radiation therapy; R97.20 Elevated prostate specific antigen [PSA]; M19.90 Unspecified osteoarthritis, unspecified site; M10.9 Gout, unspecified; E78.00 Pure hypercholesterolemia, unspecified; I10 Essential (primary) hypertension; Z79.899 Other long term (current) drug therapy; Y84.2 Radiological procedure and radiotherapy as the cause of abnormal reaction of the patient, or of later complication, without mention of misadventure at the time of the procedure ==

== ENCOUNTER → 2020-10-09 | Outpatient (CLI) | payer OTHER | LOC: HYPER 10:00 | PROVIDERS: ATTEND Specialist | DX: L59.8 Other specified disorders of the skin and subcutaneous tissue related to radiation (principal); M87.88 Other osteonecrosis, other site; N30.41 Irradiation cystitis with hematuria; C61 Malignant neoplasm of prostate; N52.35 Erectile dysfunction following radiation therapy; R97.20 Elevated prostate specific antigen [PSA]; M19.90 Unspecified osteoarthritis, unspecified site; M10.9 Gout, unspecified; E78.00 Pure hypercholesterolemia, unspecified; I10 Essential (primary) hypertension; Y84.2 Radiological procedure and radiotherapy as the cause of abnormal reaction of the patient, or of later complication, without mention of misadventure at the time of the procedure ==

== ENCOUNTER → 2020-10-10 | Outpatient (CLI) | payer OTHER | LOC: HYPER 14:24 | PROVIDERS: ATTEND Emergency Medicine | DX: L59.8 Other specified disorders of the skin and subcutaneous tissue related to radiation (principal); M87.88 Other osteonecrosis, other site; N30.41 Irradiation cystitis with hematuria; C61 Malignant neoplasm of prostate; N52.35 Erectile dysfunction following radiation therapy; R97.20 Elevated prostate specific antigen [PSA]; M19.90 Unspecified osteoarthritis, unspecified site; M10.9 Gout, unspecified; E78.00 Pure hypercholesterolemia, unspecified; I10 Essential (primary) hypertension; Y84.2 Radiological procedure and radiotherapy as the cause of abnormal reaction of the patient, or of later complication, without mention of misadventure at the time of the procedure ==

== ENCOUNTER → 2020-10-11 | Outpatient (CLI) | payer OTHER | LOC: HYPER 07:55 | PROVIDERS: ATTEND Emergency Medicine | DX: L59.8 Other specified disorders of the skin and subcutaneous tissue related to radiation (principal); M87.88 Other osteonecrosis, other site; N30.41 Irradiation cystitis with hematuria; C61 Malignant neoplasm of prostate; N52.35 Erectile dysfunction following radiation therapy; R97.20 Elevated prostate specific antigen [PSA]; M19.90 Unspecified osteoarthritis, unspecified site; M10.9 Gout, unspecified; E78.00 Pure hypercholesterolemia, unspecified; I10 Essential (primary) hypertension; Y84.2 Radiological procedure and radiotherapy as the cause of abnormal reaction of the patient, or of later complication, without mention of misadventure at the time of the procedure ==

== ENCOUNTER → 2020-10-12 | Outpatient (CLI) | payer OTHER | LOC: HYPER 07:38 | PROVIDERS: ATTEND Emergency Medicine Emergency Medical Services | DX: L59.8 Other specified disorders of the skin and subcutaneous tissue related to radiation (principal); N30.41 Irradiation cystitis with hematuria; N52.35 Erectile dysfunction following radiation therapy; C61 Malignant neoplasm of prostate; R97.20 Elevated prostate specific antigen [PSA]; I10 Essential (primary) hypertension; M19.90 Unspecified osteoarthritis, unspecified site; M06.9 Rheumatoid arthritis, unspecified; E78.00 Pure hypercholesterolemia, unspecified; Z85.46 Personal history of malignant neoplasm of prostate; Z79.899 Other long term (current) drug therapy; Y84.2 Radiological procedure and radiotherapy as the cause of abnormal reaction of the patient, or of later complication, without mention of misadventure at the time of the procedure ==

== ENCOUNTER → 2020-10-16 | Outpatient (CLI) | payer OTHER | LOC: HYPER 08:05 | PROVIDERS: ATTEND Emergency Medicine | DX: L59.8 Other specified disorders of the skin and subcutaneous tissue related to radiation (principal); N30.41 Irradiation cystitis with hematuria; M87.88 Other osteonecrosis, other site; N52.35 Erectile dysfunction following radiation therapy; C61 Malignant neoplasm of prostate; R97.20 Elevated prostate specific antigen [PSA]; I10 Essential (primary) hypertension; M06.9 Rheumatoid arthritis, unspecified; E78.00 Pure hypercholesterolemia, unspecified; Z85.46 Personal history of malignant neoplasm of prostate; Y84.2 Radiological procedure and radiotherapy as the cause of abnormal reaction of the patient, or of later complication, without mention of misadventure at the time of the procedure ==

== ENCOUNTER → 2020-10-17 | Outpatient (CLI) | payer OTHER | LOC: HYPER 07:41 | PROVIDERS: ATTEND Emergency Medicine | DX: L59.8 Other specified disorders of the skin and subcutaneous tissue related to radiation (principal); N30.41 Irradiation cystitis with hematuria; N52.35 Erectile dysfunction following radiation therapy; R97.20 Elevated prostate specific antigen [PSA]; C61 Malignant neoplasm of prostate; M87.88 Other osteonecrosis, other site; I10 Essential (primary) hypertension; M19.90 Unspecified osteoarthritis, unspecified site; M10.9 Gout, unspecified; E78.00 Pure hypercholesterolemia, unspecified; Z79.899 Other long term (current) drug therapy; Y84.2 Radiological procedure and radiotherapy as the cause of abnormal reaction of the patient, or of later complication, without mention of misadventure at the time of the procedure ==

== ENCOUNTER → 2020-10-18 | Outpatient (CLI) | payer OTHER | LOC: HYPER 07:39 | PROVIDERS: ATTEND Emergency Medicine | DX: L59.8 Other specified disorders of the skin and subcutaneous tissue related to radiation (principal); N30.41 Irradiation cystitis with hematuria; N52.35 Erectile dysfunction following radiation therapy; C61 Malignant neoplasm of prostate; R97.20 Elevated prostate specific antigen [PSA]; M87.88 Other osteonecrosis, other site; M19.90 Unspecified osteoarthritis, unspecified site; M10.9 Gout, unspecified; E78.00 Pure hypercholesterolemia, unspecified; I10 Essential (primary) hypertension; Z79.899 Other long term (current) drug therapy; Y84.2 Radiological procedure and radiotherapy as the cause of abnormal reaction of the patient, or of later complication, without mention of misadventure at the time of the procedure ==

== ENCOUNTER → 2020-10-19 | Outpatient (CLI) | payer OTHER | LOC: HYPER 07:42 | PROVIDERS: ATTEND Emergency Medicine | DX: L59.8 Other specified disorders of the skin and subcutaneous tissue related to radiation (principal); N30.41 Irradiation cystitis with hematuria; N52.35 Erectile dysfunction following radiation therapy; C61 Malignant neoplasm of prostate; R97.20 Elevated prostate specific antigen [PSA]; M87.88 Other osteonecrosis, other site; M19.90 Unspecified osteoarthritis, unspecified site; I10 Essential (primary) hypertension; M10.9 Gout, unspecified; E78.00 Pure hypercholesterolemia, unspecified; Z79.899 Other long term (current) drug therapy; Y84.2 Radiological procedure and radiotherapy as the cause of abnormal reaction of the patient, or of later complication, without mention of misadventure at the time of the procedure ==

== ENCOUNTER → 2020-10-22 | Outpatient (CLI) | payer OTHER | LOC: HYPER 07:41 | PROVIDERS: ATTEND Emergency Medicine | DX: L59.8 Other specified disorders of the skin and subcutaneous tissue related to radiation (principal); N30.41 Irradiation cystitis with hematuria; M87.88 Other osteonecrosis, other site; N52.35 Erectile dysfunction following radiation therapy; C61 Malignant neoplasm of prostate; R97.20 Elevated prostate specific antigen [PSA]; I10 Essential (primary) hypertension; M19.90 Unspecified osteoarthritis, unspecified site; M10.9 Gout, unspecified; E78.00 Pure hypercholesterolemia, unspecified; Z79.899 Other long term (current) drug therapy; Y84.2 Radiological procedure and radiotherapy as the cause of abnormal reaction of the patient, or of later complication, without mention of misadventure at the time of the procedure ==

== ENCOUNTER → 2020-10-23 | Outpatient (CLI) | payer OTHER | LOC: HYPER 07:39 | PROVIDERS: ATTEND Specialist | DX: L59.8 Other specified disorders of the skin and subcutaneous tissue related to radiation (principal); N30.41 Irradiation cystitis with hematuria; M87.88 Other osteonecrosis, other site; N52.35 Erectile dysfunction following radiation therapy; C61 Malignant neoplasm of prostate; R97.20 Elevated prostate specific antigen [PSA]; I10 Essential (primary) hypertension; M19.90 Unspecified osteoarthritis, unspecified site; M10.9 Gout, unspecified; E78.00 Pure hypercholesterolemia, unspecified; Z79.899 Other long term (current) drug therapy; Y84.2 Radiological procedure and radiotherapy as the cause of abnormal reaction of the patient, or of later complication, without mention of misadventure at the time of the procedure ==

== ENCOUNTER → 2020-10-24 | Outpatient (CLI) | payer OTHER | LOC: HYPER 07:34 | PROVIDERS: ATTEND Emergency Medicine | DX: L59.8 Other specified disorders of the skin and subcutaneous tissue related to radiation (principal); N30.41 Irradiation cystitis with hematuria; M87.88 Other osteonecrosis, other site; N52.35 Erectile dysfunction following radiation therapy; C61 Malignant neoplasm of prostate; R97.20 Elevated prostate specific antigen [PSA]; I10 Essential (primary) hypertension; M19.90 Unspecified osteoarthritis, unspecified site; M10.9 Gout, unspecified; E78.00 Pure hypercholesterolemia, unspecified; Y84.2 Radiological procedure and radiotherapy as the cause of abnormal reaction of the patient, or of later complication, without mention of misadventure at the time of the procedure ==

== ENCOUNTER → 2020-10-25 | Outpatient (CLI) | payer OTHER | LOC: HYPER 08:18 | PROVIDERS: ATTEND Emergency Medicine Emergency Medical Services | DX: L59.8 Other specified disorders of the skin and subcutaneous tissue related to radiation (principal); N30.41 Irradiation cystitis with hematuria; M87.88 Other osteonecrosis, other site; N52.35 Erectile dysfunction following radiation therapy; C61 Malignant neoplasm of prostate; R97.20 Elevated prostate specific antigen [PSA]; I10 Essential (primary) hypertension; M19.90 Unspecified osteoarthritis, unspecified site; M10.9 Gout, unspecified; E78.00 Pure hypercholesterolemia, unspecified; Y84.2 Radiological procedure and radiotherapy as the cause of abnormal reaction of the patient, or of later complication, without mention of misadventure at the time of the procedure ==

== ENCOUNTER → 2020-10-26 | Outpatient (CLI) | payer OTHER | LOC: HYPER 07:37 | PROVIDERS: ATTEND Emergency Medicine Emergency Medical Services | DX: L59.8 Other specified disorders of the skin and subcutaneous tissue related to radiation (principal); N30.41 Irradiation cystitis with hematuria; N52.35 Erectile dysfunction following radiation therapy; C61 Malignant neoplasm of prostate; R97.20 Elevated prostate specific antigen [PSA]; M87.88 Other osteonecrosis, other site; I10 Essential (primary) hypertension; M19.90 Unspecified osteoarthritis, unspecified site; M10.9 Gout, unspecified; E78.00 Pure hypercholesterolemia, unspecified; Z98.890 Other specified postprocedural states; Z79.899 Other long term (current) drug therapy; Y84.2 Radiological procedure and radiotherapy as the cause of abnormal reaction of the patient, or of later complication, without mention of misadventure at the time of the procedure ==

== ENCOUNTER → 2020-10-29 | Outpatient (CLI) | payer OTHER | LOC: HYPER 07:39 | PROVIDERS: ATTEND Emergency Medicine Emergency Medical Services | DX: L59.8 Other specified disorders of the skin and subcutaneous tissue related to radiation (principal); M87.88 Other osteonecrosis, other site; N30.41 Irradiation cystitis with hematuria; N52.35 Erectile dysfunction following radiation therapy; C61 Malignant neoplasm of prostate; R97.20 Elevated prostate specific antigen [PSA]; I10 Essential (primary) hypertension; M19.90 Unspecified osteoarthritis, unspecified site; M10.9 Gout, unspecified; E78.00 Pure hypercholesterolemia, unspecified; Y84.2 Radiological procedure and radiotherapy as the cause of abnormal reaction of the patient, or of later complication, without mention of misadventure at the time of the procedure ==

== ENCOUNTER → 2020-10-30 | Outpatient (CLI) | payer OTHER | LOC: HYPER 07:42 | PROVIDERS: ATTEND Specialist | DX: L59.8 Other specified disorders of the skin and subcutaneous tissue related to radiation (principal); M87.88 Other osteonecrosis, other site; N30.41 Irradiation cystitis with hematuria; N52.35 Erectile dysfunction following radiation therapy; C61 Malignant neoplasm of prostate; R97.20 Elevated prostate specific antigen [PSA]; I10 Essential (primary) hypertension; M19.90 Unspecified osteoarthritis, unspecified site; M10.9 Gout, unspecified; E78.00 Pure hypercholesterolemia, unspecified; Y84.2 Radiological procedure and radiotherapy as the cause of abnormal reaction of the patient, or of later complication, without mention of misadventure at the time of the procedure ==

== ENCOUNTER → 2020-10-31 | Outpatient (CLI) | payer OTHER | LOC: HYPER 07:51 | PROVIDERS: ATTEND Emergency Medicine | DX: L59.8 Other specified disorders of the skin and subcutaneous tissue related to radiation (principal); M87.88 Other osteonecrosis, other site; N30.41 Irradiation cystitis with hematuria; N52.35 Erectile dysfunction following radiation therapy; C61 Malignant neoplasm of prostate; R97.20 Elevated prostate specific antigen [PSA]; I10 Essential (primary) hypertension; M19.90 Unspecified osteoarthritis, unspecified site; M10.9 Gout, unspecified; E78.00 Pure hypercholesterolemia, unspecified; Y84.2 Radiological procedure and radiotherapy as the cause of abnormal reaction of the patient, or of later complication, without mention of misadventure at the time of the procedure ==

== ENCOUNTER → 2020-11-01 | Outpatient (CLI) | payer OTHER | LOC: HYPER 09:10 | PROVIDERS: ATTEND Emergency Medicine Emergency Medical Services | DX: L59.8 Other specified disorders of the skin and subcutaneous tissue related to radiation (principal); M87.88 Other osteonecrosis, other site; N30.41 Irradiation cystitis with hematuria; N52.35 Erectile dysfunction following radiation therapy; C61 Malignant neoplasm of prostate; R97.20 Elevated prostate specific antigen [PSA]; I10 Essential (primary) hypertension; E78.00 Pure hypercholesterolemia, unspecified; M19.90 Unspecified osteoarthritis, unspecified site; M10.9 Gout, unspecified; Y84.2 Radiological procedure and radiotherapy as the cause of abnormal reaction of the patient, or of later complication, without mention of misadventure at the time of the procedure ==

== ENCOUNTER → 2020-11-02 | Outpatient (CLI) | payer OTHER | LOC: HYPER 08:00 | PROVIDERS: ATTEND Emergency Medicine Emergency Medical Services | DX: L59.8 Other specified disorders of the skin and subcutaneous tissue related to radiation (principal); M87.88 Other osteonecrosis, other site; N30.41 Irradiation cystitis with hematuria; N52.35 Erectile dysfunction following radiation therapy; C61 Malignant neoplasm of prostate; R97.20 Elevated prostate specific antigen [PSA]; I10 Essential (primary) hypertension; E78.00 Pure hypercholesterolemia, unspecified; M19.90 Unspecified osteoarthritis, unspecified site; M10.9 Gout, unspecified; Y84.2 Radiological procedure and radiotherapy as the cause of abnormal reaction of the patient, or of later complication, without mention of misadventure at the time of the procedure ==

== ENCOUNTER → 2021-04-30 | Outpatient (CLI) | payer OTHER | LOC: SJCVCIMAG 08:33 | PROVIDERS: ATTEND Internal Medicine | DX: I07.1 Rheumatic tricuspid insufficiency (principal); I49.9 Cardiac arrhythmia, unspecified; I10 Essential (primary) hypertension; E78.5 Hyperlipidemia, unspecified ==

== ENCOUNTER 2021-06-06 09:13 | Observation (INO) | payer OTHER ==
[~2021-06-06] VITALS: Ht 172.7 cm; Wt 83.9 kg
[2021-06-06 09:51] LABS: HEMATOCRIT 41.8 % (42.0-52.0); MCH 30.5 pg (26.0-34.0); MCHC 33.5 g/dL (28.0-37.0); MCV 90.8 fL (80.0-100.0); RBC 4.6 mil/uL (4.50-6.00); RDW 13.7 % (10.5-14.5); WBC 5.3 thou/uL (4.0-11.0)
[2021-06-06 09:58] LABS: CALCIUM 9.7 mg/dL (8.5-10.1); CREATININE 2.2 mg/dL (0.7-1.3); POTASSIUM 4.2 mmol/L (3.5-5.1)
[2021-06-06 10:12] VITALS: BP 125/69
--- NOTE | 2021-06-06 14:33 | EKG ---
[place] [address] [facility] [place] [address] ELECTROCARDIOGRAM REPORT Name: RITA VENCES [id number] Admission: 06/06/21 Attend Phys: Shreyas Santillan Discharge: Date of : 47 Report #: [id number] [facility] Test Date: 2021-06-06 Test Time: 09:48:03 Pat Name: RITA VENCES Department: Room: Gender: M Round Kiln Drawer: BETHANIE : 1945 Requested By: Shreyas Santillan Order Number: [id number] MD: Ab Toth Measurements Intervals [place] Rate: 56 P: 29 KS: 184 QRS: -14 QRSD: 96 T: 35 QT: 415 QTc: 401 Interpretive Statements Sinus rhythm Borderline low voltage, extremity leads Compared to ECG 10/30/2016 07:49:04 ST (T wave) deviation now present Poor R-wave progression no longer present Inferior Q waves no longer present Q waves no longer present Electronically Signed On 06-06-2021 14:32:53 CLAY PUDDLER by Ab Toth [email or web address] <ELECTRONICALLY SIGNED> By: Ab Toth MD, FAC 06/06/21 1432 0948 0948 Ab Toth MD, [facility] /EPI
[2021-06-06 15:45] VITALS: BP 153/86
--- NOTE | 2021-06-06 17:25 | NUR ---
Received pt to room 209 from company laborer s/p cardiac cath. Pt A&O X4, on RA, SR w/ PVCs on the monitor. Admission assessment performed & charted. Forms signed & posted on chart. Pt w/ > $100 thompson which was inventoried & sent to hold w/ security, form posted in chart. Misc. note to restart home meds put in by Dr. Santillan, paged physican. Per Dr. Santillan, pt is restart all home meds that pt has, this nurse inserted pt medications from pt phone list. Wrist bands applied, fall education in place.
[2021-06-06 20:00] VITALS: BP 144/73
[2021-06-07 04:14] VITALS: BP 135/85
--- NOTE | 2021-06-07 06:50 | NUR ---
PATIENTS CARES WHERE ASSUMED AT SHIFT CHANGE,, PATIENT WAS ASSESSED AND MEDS WHERE PASSED. PATIENT HAD AN UNEVENTFULL NIGHT. PATIENT HAD NO REQUEST. PATIENT IS LOOKING FORWARD TO GOING HOME TODAY. ROUNDS WHERE DONE. THE BED IS IN A LOW AND LOCKED POSITION
[2021-06-07 08:00] VITALS: BP 150/86
[2021-06-07] MEDS ORDERED: BAYER CHEWABLE81 MG PO (09:12)
[2021-06-07] MEDS ORDERED: NIFEDIPINE ER90 MG PO (09:12)
[2021-06-07] MEDS ORDERED: BRILINTA90 MG PO (09:12)
[2021-06-07 12:50] VITALS: BP 150/86
--- NOTE | 2021-06-07 13:39 | NUR ---
PATIENT DISCHARGED HOME, NO QUESTIONS OR CONCERNS AT TIME OF EDUCATION. TELE AND IV REMOVED. TAKEN OUT BY WHEELCHAIR WITH STAFF TO WAITING IN PRIVATE VEHICLE.
--- NOTE | 2021-06-17 10:43 | CATHLAB ---
[facility] [place] [address] INVASIVE PROCEDURE REPORT Name: RITA VENCES Room #: 209-P [facility] Joao Borja#: [id number] Admission: 06/06/21 Attend Phys: Shreyas Santillan Discharge: 06/07/21 Date of : 47 Report #: [id number] REPORT FOR: cc: Caesar Richard MD, Abid R. MD Lammoglia, Francisco J. MD ~ APPROVED REPORT Study performed: 06/06/2021 11:23:07 Patient Details Patient Status: Out-Patient Room #: The patient is a 75 year-old male Event Personnel Shreyas Santillan Customer Operations Intern, Paris Aguirre RTR Monitor, Nicolasa Schuster RTR BertubMitch Jessica RN department clerk Performed Art Access - R femoral artery* Left Heart Cath w/or w/o Coronaries 5374210 LHC Hemostasis w/ Mynx 77966 Initial Mod Sed Same Phys/QHP Gr5y 721069 28557 Mod Sed Same Phys/QHP Ea 411584 FFR 8029625 FFR JULY Place w/wo Plasty Single RCA 438148, supervision of conscious sedation Procedure Narrative The Right Groin^ was infiltrated with 1% Lidocaine subcutaneous anesthesia. A PINNACLE 4FR Sheath #[id number] sheath was inserted into the RFA^. Coronary angiography was performed using coronary diagnostic catheters. The right coronary system was accessed and visualized with a JR4 catheter. The left coronary system was accessed and visualized with a JL4 catheter. Closure device was deployed with a Fr MYNX CONTROL 6F/7F L#[id number]. The patient tolerated the procedure well and there were no complications associated with the procedure. There was no hematoma. Intraoperative Conscious Sedation Sedation start time: 12:15 Case end Time: 13:13 Versed 2 mg Fluoro Time: 12.80 minutes Dose: DAP 23970.90 cGycm2 2278 mGy [facility] [place] [address] INVASIVE PROCEDURE REPORT Name: RITA VENCES Room #: 209-P DIS IN M.R.#: [id number] Admission: 06/06/21 Attend Phys: Shreyas Burroughs Discharge: 06/07/21 Date of : 47 Report #: [id number] Contrast Type and Amount: Omnipaque 180 ml Coronary Angiography The patient's coronary anatomy is right dominant. Diagnostic Cath Left Main Large-caliber vessel normal origin bifurcates left into descending left circumflex free of high-grade disease LAD Large-caliber type III vessel which courses in the anterior ventricular sulcus. Proximally near the first diagonal origin there is some plaquing of less than 30%. The vessel continues on tortuous in its course with there appears to be regions that are greater than 60% stenosis on bends. No heavy calcification noted in these regions. Diagonal 1 Moderate caliber vessel with luminal irregularities no high-grade lesions are present Diagonal 2 Small caliber vessel significant stenosis Circumflex Large-caliber vessel coursing the AV groove giving rise to a small first marginal branch is free of high-grade disease. Quite soon after that the large caliber bifurcating marginal arises that present on the lateral aspect of the heart tortuous in its course and branching without high-grade lesion circumflex proper then terminates a small caliber posterior wall branch OM1 Small caliber vessel significant high-grade lesion OM2 Large-caliber bifurcating branch with a tortuous course towards the apex on the lateral aspect of the heart without high-grade stenosis present Right Coronary Moderate caliber vessel normal origin proceeds in AV groove giving rise to RV marginal branches and continues to the catheter with a subtotally occluded with JOSE E I flow noted. R PDA Small caliber vessel without significant high-grade lesions Left Ventriculography Left Ventriculography was not performed. Hemodynamics The aortic pressure is 145/65 mmHg with a mean of 59 mmHg. PCI Technique After termination proceed with progressing vascularization of this right coronary artery the 4 [place]ander system was exchanged for a 6 [place]ander system. A standard JR4 guide was engaged to the right [facility] [address] [place] [address] INVASIVE PROCEDURE REPORT Name: RITA VENCES Malena Room #: 209-P DIS IN M.R.#: [id number] Admission: 06/06/21 Attend Phys: Shreyas Burroughs Discharge: 06/07/21 Date of : 47 Report #: [id number] coronary ostium. 0.014 wire was then advanced distally. Utilizing initial predilatation balloon the high-grade lesion was dilated. Subsequent to this the sizing of the vessel was intermediate between 1.5 and 2.0 mm in diameter. A 2.0 mm stent was then positioned and deployed without difficulty. The vessel was widely patent and there was sizing differential distal to the stent which was mild. No intraluminal thrombus dissection or distal embolization was identified. Subsequent to this the distal LAD lesion was borderline questionable and an FFR wire was then positioned distally for assessment. There is also greater than 0.91 and therefore deemed nonsignificant. Optimize medical regimen was recommended for the lesion. PCI Technique Lesion Percutaneous coronary intervention was performed on the distal right coronary artery. A LAUNCHER 6FR JR 4 #[id number] Guide Catheter was used to engage the ostium. A Luge Wire (J) .014 X 182CM #[id number] Interventional Guidewire was used to cross the lesion. BALLOON DILATION A Balloon catheter Sprinter OTW 2.0 x 20 #[id number] was inserted and inflated up to 8.00atm for 19seconds. Additional Inflation: 10.00atm for 28seconds. Additional Inflation: 14.00atm for 28seconds. Additional Inflation: 14 [place] for 12 seconds. STENT DEPLOYMENT A drug-eluting stent RESOLUTE HECTOR OTW 2.0 X 18 #[id number] was inserted and inflated up to 10.00atm for 5seconds. Additional Inflation: 12.00atm for 7seconds. Conclusion 1. Coronary disease, severe, two-vessel consisting of a high-grade distal RCA and mild to moderate distal LAD 2. Successful percutaneous revascularization of the distal right coronary artery with a 2.0 mm x 18 mm length JULY stent 3. Nonsignificant fractional flow reserve analysis of the mid and distal LAD Recommendations Cardiac Risk Reduction Program Medical Therapy [facility] [address] [place] [address] INVASIVE PROCEDURE REPORT Name: RITA VENCES Room #: 209-P [facility] IN M.R.#: [id number] Admission: 06/06/21 Attend Phys: Shreyas Burroughs Discharge: 06/07/21 Date of : 47 Report #: [id number] Dual antiplatelet therapy is recommended and will be continued per protocol and standard guideline recommendation <ELECTRONICALLY SIGNED> By: Shreyas Santillan MD 06/17/21 1042 104 1042 Shreyas Santillan MD /INF
== END 2021-06-07 14:15 | disposition home or self-care (01) ==
LOC: CATH 09:13 → 2N 15:32
PROVIDERS: ADMIT Internal Medicine; ATTEND Internal Medicine
DX: I25.110 Atherosclerotic heart disease of native coronary artery with unstable angina pectoris (principal); I10 Essential (primary) hypertension; D72.829 Elevated white blood cell count, unspecified; Z79.899 Other long term (current) drug therapy; Z79.82 Long term (current) use of aspirin

== ENCOUNTER → 2021-07-08 | Outpatient (CLI) | payer OTHER ==
[~2021-07-08] MED LIST changes: +BAYER CHEWABLE81 MG PO; +BRILINTA90 MG PO; +NIFEDIPINE ER90 MG PO
== END ==
LOC: SJCVC 13:18
PROVIDERS: ATTEND Internal Medicine
DX: I44.4 Left anterior fascicular block (principal); R94.31 Abnormal electrocardiogram [ECG] [EKG]; I25.10 Atherosclerotic heart disease of native coronary artery without angina pectoris; I12.9 Hypertensive chronic kidney disease with stage 1 through stage 4 chronic kidney disease, or unspecified chronic kidney disease; N18.30 Chronic kidney disease, stage 3 unspecified; E78.5 Hyperlipidemia, unspecified; Z95.5 Presence of coronary angioplasty implant and graft; Z87.898 Personal history of other specified conditions; Z79.82 Long term (current) use of aspirin; Z79.899 Other long term (current) drug therapy